=== PATIENT | female | born 1985 | race Caucasian/White ===

== ENCOUNTER 2017-12-28 01:06 | Emergency (ER) | payer OTHER ==
[2017-12-28 01:10] VITALS: BP 117/87
[2017-12-28] MEDS ORDERED: Pregabalin CAP(*) 50 MG PO ONE (01:19)
[2017-12-28] MEDS ORDERED: Ibuprofen TAB* 800 MG PO ONE (01:19)
[2017-12-28] MEDS ORDERED: oxyCODONE/Acetamin 5/325 MG* TAB PO ONE (02:07)
--- NOTE | 2017-12-28 03:06 | ED ---
Mert Peters Stephanie, scribed for Luis Melgar MD on 12/28/17 at 0124 . Upper Extremity Pain - HPI Summary HPI Summary: The pt is a 32 y/o F presenting to the ED with c/o R elbow pain that began at 19 :00 on 12/27/17. She denies sleeping incorrectly on that arm. She reports going on a 4 mile walk during the day. - History of Current Complaint Chief Complaint: EDExtremityUpper Stated Complaint: RT ELBOW INJURY Time Seen by Provider: 12/28/17 01:11 Hx Obtained From: Patient Hx Last Menstrual Period: 2 WEEKS AGO Mechanism Of Injury: Unknown Onset/Duration: Started Hours Ago Timing: Constant Severity Currently: Mild Pain Location: Elbow - R Aggravating Factor(s): Nothing Alleviating Factor(s): Nothing - Allergies/Home Medications Allergies/Adverse Reactions: Allergies Allergy/AdvReac Type Severity Reaction Status Date / Time levofloxacin [From Levaquin] Allergy Rash Verified 12/28/17 01:08 PMH/Surg Hx/FS Hx/Imm Hx Endocrine/Hematology History: Denies: Hx Anticoagulant Therapy, Hx Diabetes, Hx Thyroid Disease Cardiovascular History: Denies: Hx Hypertension, Hx Pacemaker/ICD Respiratory History: Reports: Hx Asthma - allergy induced Denies: Hx Chronic Obstructive Pulmonary Disease (COPD), Hx Lung Cancer GI History: Denies: Hx Gall Bladder Disease, Hx Gastrointestinal Bleed, Hx Ulcer, Hx Urosepsis History: Denies: Hx Kidney Stones, Hx Renal Disease Sensory History: Denies: Hx Hearing Aid Neurological History: Denies: Hx Dementia, Hx Migraine, Hx Seizures, Hx Transient Ischemic Attacks (TIA) Psychiatric History: Reports: Hx Anxiety Denies: Hx Depression, Hx Panic Disorder, Hx Schizophrenia, Hx Bipolar Disorder - Surgical History Surgery Procedure, Year, and Place: bilateral inferior turbinate reduction Infectious Disease History: No Infectious Disease History: Denies: Hx Hepatitis, Hx Human Immunodeficiency Virus (HIV), Traveled Outside the [place] in Last 30 Days - Family History Known Family History: Negative: Renal Disease - Social History Occupation: Employed Full-time Lives: With Family Alcohol Use: None Hx Substance Use: No Substance Use Type: Reports: None Hx Tobacco Use: No Smoking Status (MU): Never Smoked Tobacco Have You Smoked in the Last Year: No Review of Systems Negative: Fever Positive: Other - R elbow pain Negative: Slurred Speech All Other Systems Reviewed And Are Negative: Yes Physical Exam - Summary Physical Exam Summary: VITAL SIGNS: Reviewed. GENERAL: Patient is a well-developed and nourished FEMALE who is lying comfortable in the stretcher. Patient is not in any acute respiratory distress. HEAD AND FACE: No signs of trauma. No ecchymosis, hematomas or skull depressions. No sinus tenderness. EYES: PERRLA, EOMI x 2, No injected conjunctiva, no nystagmus. EARS: Hearing grossly intact. Ear canals and tympanic membranes are within normal limits. MOUTH: Oropharynx within normal limits. NECK: Supple, trachea is midline, no adenopathy, no JVD, no carotid bruit, no c- spine tenderness, neck with full ROM. CHEST: Symmetric, no tenderness at palpation LUNGS: Clear to auscultation bilaterally. No wheezing or crackles. CVS: Regular rate and rhythm, S1 and S2 present, no murmurs or gallops appreciated. ABDOMEN: Soft, non-tender. No signs of distention. No rebound no guarding, and no masses palpated. Bowel sounds are normal. EXTREMITIES: FROM in all major joints, no edema, no cyanosis or clubbing. Tenderness over medial lateral side of elbow. Neurovascularly intact distally. No swelling. NEURO: Alert and oriented x 3. No acute neurological deficits. Speech is normal and follows commands. SKIN: Dry and warm Triage Information Reviewed: Yes Vital Signs On Initial Exam: Initial Vitals Temp Pulse Resp BP Pulse Ox 97.8 F 90 20 117/87 98 12/28/17 01:07 12/28/17 01:07 12/28/17 01:07 12/28/17 01:07 12/28/17 01:07 Vital Signs Reviewed: Yes Diagnostics - Vital Signs Vital Signs Temp Pulse Resp BP Pulse Ox 12/28/17 01:07 97.8 F 90 20 117/87 98 - Laboratory Lab Statement: Any lab studies that have been ordered have been reviewed, and results considered in the medical decision making process. Re-Evaluation - Re-Evaluation First Eval Re-Evaluation Time: 02:47 Change: Improved - The pt states her pain has improved. Course/Dx - Course Course Of Treatment: ED physician encouraged the pt to follow up with ortho in the morning. The pt is in a sling. Dx: R elbow pain, possible neuropathy. - Diagnoses Provider Diagnoses: Right elbow pain Discharge - Sign-Out/Discharge Documenting (check all that apply): Discharge/Admit/Transfer - Discharge - Discharge Plan Condition: Stable Disposition: HOME Prescriptions: oxyCODONE/Acetamin 5/325 MG* [Percocet 5/325 TAB*] 1 tab PO Q6H PRN #14 tab MDD 4 PRN Reason: Pain Patient Education Materials: Elbow Sprain (ED), Arthralgia (ED) Referrals: Jennifer Samano MD [Medical Doctor] - Additional Instructions: Return to the ED for new or worsening symptoms. The documentation as recorded by the Mert waddell Stephanie accurately reflects the service I personally performed and the decisions made by , Luis Melgar MD.
--- NOTE | 2017-12-28 07:51 | RAD ---
INDICATION: Atraumatic right elbow pain COMPARISON: None TECHNIQUE: AP, lateral, and oblique views were obtained. FINDINGS: There is no convincing evidence of acute fracture. The elbow articulates normally. There is displacement of anterior posterior fat pads consistent with a joint effusion. IMPRESSION: JOINT EFFUSION. NO DEFINITIVE FRACTURE. SUGGEST FOLLOW-UP INDICATED.
== END 2017-12-28 03:12 | disposition home or self-care (01) ==
LOC: ED 01:06
DX: M25.521 Pain in right elbow (principal)
CPT/HCPCS: 99283; A9270-GY

== ENCOUNTER 2018-01-24 18:39 | Emergency (ER) | payer OTHER ==
[2018-01-24 19:05] VITALS: BP 123/84
[2018-01-24] MEDS ORDERED: Al Hydrox/Mg Hydrox/Simet LIQ* 30 ML UDC PO ONE (19:16)
[2018-01-24] MEDS ORDERED: Lidocaine 2% VISCOUS* 15 ML UDC PO ONE (19:17)
--- NOTE | 2018-01-24 20:09 | UC ---
Luther Peters Elizabeth, scribed for Luis Medeiros MD on 01/24/18 at 1915 . Cardiac HPI - HPI Summary HPI Summary: This patient is a 32 year old F presenting to [facility] with a chief complaint of intermittent upper sternal chest pain since this morning. The patient notes that the pain feels like acid reflux. The patient rates the pain 8/10 in severity. Symptoms aggravated by lying down. Symptoms alleviated by nothing. Patient reports vomiting stomach acid. Patient denies any hx of cardiac problems. The patient takes Prilosec PRN and Zantac. The patient has be previously diagnosed with a hiatal hernia. - History of Current Complaint Chief Complaint: UCGeneralIllness Stated Complaint: ACID REFLUX Time Seen by Provider: 01/24/18 19:08 Hx Obtained From: Patient Hx Last Menstrual Period: 01/20/18 Onset/Duration: Sudden Onset, Lasting Hours, Still Present Timing: Intermittent Episodes Lasting: Initial Severity: Moderate Current Severity: Moderate Pain Intensity: 8 Chest Pain Location: Upper Sternal Character: Burning Aggravating Factor(s): Position - lying down Alleviating Factor(s): Nothing Associated Signs & Symptoms: Positive: Chest Pain - upper sternal, Nausea/ Vomiting - Allergy/Home Medications Allergies/Adverse Reactions: Allergies Allergy/AdvReac Type Severity Reaction Status Date / Time levofloxacin [From Levaquin] Allergy Rash Verified 01/10/18 12:33 PMH/Surg Hx/FS Hx/Imm Hx Respiratory History: Asthma - allergy-induced GI/ History: Gastroesophageal Reflux Other GI/ History: hiatal hernia Other History Of: Negative For: HIV, Hepatitis B, Hepatitis C, Anticoagulant Therapy - Surgical History Surgical History: Yes Surgery Procedure, Year, and Place: bilateral inferior turbinate reduction - Family History Known Family History: Negative: Cardiac Disease - Social History Alcohol Use: None Substance Use Type: None Smoking Status (MU): Never Smoked Tobacco Review of Systems Constitutional: Negative - negative fever Respiratory: Negative - negative cough Cardiovascular: Chest Pain - upper stenal chest pain Gastrointestinal: Vomiting All Other Systems Reviewed And Are Negative: Yes Physical Exam - Summary Physical Exam Summary: General: well-appearing, no pain distress Skin: warm, color reflects adequate perfusion, dry Head: normal Eyes: EOMI, TREMAINE ENT: normal Neck: supple, nontender Respiratory: CTA, breath sounds present Cardiovascular: RRR Abdomen: soft, mild epigastric tenderness Bowel: present Musculoskeletal: normal, strength/ROM intact Neurological: sensory/motor intact, A&O x3 Psychological: affect/mood appropriate Triage Information Reviewed: Yes Vital Signs: Initial Vital Signs Temp 98.9 F 01/24/18 19:00 Pulse 87 01/24/18 19:00 Resp 16 01/24/18 19:00 BP 123/84 01/24/18 19:00 Pulse Ox 98 01/24/18 19:00 Vital Signs Reviewed: Yes - Assessment/Plan Course Of Treatment: DISCUSSED CARDIAC EVAL TO INCLUDE AN EKG HERE IN CLINIC. THE PATIENT REPORTS THIS IS THE SAME PAIN HER HIATAL HERNIA PAIN AND IS NOT CONCERNED ABOUT A CARDIAC CAUSE AND DECLINES AN EKG AT THIS TIME. F/U PMD; RECHECK SOONER IF WORSE. - Clinical Impression Provider Diagnoses: GERD. HIATAL HERNIA Discharge - Sign-Out/Discharge Documenting (check all that apply): Discharge/Admit/Transfer - Discharge Plan Condition: Stable Disposition: HOME Discharge Disposition Comment: discharge home Prescriptions: Sucralfate TAB* [Carafate*] 1 gm PO QID #60 tab Patient Education Materials: Hiatal Hernia (ED), Gastroesophageal Reflux Disease (ED) Referrals: Pedro Burden MD [Primary Care Provider] - Additional Instructions: FOLLOW UP WITH YOUR PRIMARY CARE DOCTOR AND [facility]. TAKE A TOTAL OF 40MG A DAY OF OMEPRAZOLE. GET RECHECKED FOR ANY WORSENING OF YOUR CONDITION OR QUESTIONS OR CONCERNS. - Billing Disposition and Condition Condition: STABLE Disposition: Home The documentation as recorded by the Luther waddell Elizabeth accurately reflects the service I personally performed and the decisions made by me, Luis Medeiros MD.
== END 2018-01-24 19:35 | disposition home or self-care (01) ==
LOC: UCEAST 18:39
DX: K21.9 Gastro-esophageal reflux disease without esophagitis (principal); K44.9 Diaphragmatic hernia without obstruction or gangrene; R07.89 Other chest pain; Z88.1 Allergy status to other antibiotic agents
CPT/HCPCS: 99212; A9270-GY; G0463

== ENCOUNTER 2018-04-21 08:54 | Emergency (ER) | payer OTHER ==
[2018-04-21 09:12] VITALS: BP 136/79
--- NOTE | 2018-04-21 09:51 | UC ---
Ear Complaint HPI - HPI Summary HPI Summary: 32-year-old woman comes in with complaint of right ear and jaw pain. Started about a week ago with her right ear canal itching. She been swimming in the ocean and this started. The pain is gradually spread into her right jaw. No fevers or chills no runny nose. No change in hearing. Pain is worse with palpation and with movement of the jaw. She is having dental orthodontics down so she wonders if this is part of the issue. She still has her was teeth which are impacted. - History of Current Complaint Chief Complaint: UCEar Stated Complaint: EAR PAIN Time Seen by Provider: 04/21/18 09:30 Hx Last Menstrual Period: 04/17/18 Pain Intensity: 3 - Allergies/Home Medications Allergies/Adverse Reactions: Allergies Allergy/AdvReac Type Severity Reaction Status Date / Time levofloxacin [From Levaquin] Allergy Rash Verified 04/21/18 09:12 Home Medications: Home Medications ALPRAZolam TAB* [Xanax TAB*] 0.25 mg PO TID PRN 04/21/18 [History Confirmed 11/03] Cetirizine* [ZyrTEC 10 MG TAB*] 10 mg PO DAILY 04/21/18 [History Confirmed 04/21] Fluticasone NASAL SPRAY 50MCG* [Flonase NASAL SPRAY 50MCG*] 2 spray BOTH NARES DAILY 04/21/18 [History Confirmed 04/21/18] Norgestimate-Eth Estradiol(NF) [Ortho Tri-Cyclen (NF)] 1 tab PO DAILY 04/21/18 [ History Confirmed 04/21/18] Sucralfate TAB* [Carafate*] 1 gm PO QID PRN 04/21/18 [History Confirmed 04/21/18 ] Topiramate TAB(*) [Topamax 100 mg tab] 100 mg PO BID 04/21/18 [History Confirmed 04/21/18] raNITIdine HCl [Zantac 150 Maximum Streng] 150 mg PO DAILY 04/21/18 [History Confirmed 04/21/18] PMH/Surg Hx/FS Hx/Imm Hx Other History Of: Negative For: HIV, Hepatitis B, Hepatitis C, Anticoagulant Therapy - Surgical History Surgical History: Yes Surgery Procedure, Year, and Place: bilateral inferior turbinate reduction - Family History Known Family History: Positive: None Negative: Cardiac Disease - Social History Alcohol Use: Rare Substance Use Type: None Smoking Status (MU): Never Smoked Tobacco Review of Systems Constitutional: Negative Skin: Negative Eyes: Negative ENT: Other - SEE HPI Respiratory: Negative Cardiovascular: Negative Gastrointestinal: Negative Motor: Negative Neurovascular: Negative Musculoskeletal: Negative Neurological: Negative Psychological: Negative Is Patient Immunocompromised?: No All Other Systems Reviewed And Are Negative: Yes Physical Exam Triage Information Reviewed: Yes Appearance: Well-Appearing, No Pain Distress, Well-Nourished Vital Signs: Initial Vital Signs Temp 97.9 F 04/21/18 09:07 Pulse 76 04/21/18 09:07 Resp 16 04/21/18 09:07 BP 136/79 04/21/18 09:07 Pulse Ox 98 04/21/18 09:07 Vital Signs Reviewed: Yes Eye Exam: Normal Eyes: Positive: Conjunctiva Clear ENT: Positive: Other - There is minimal tenderness to palpation when I push on the right tragus. There is also tenderness with palpation of the right TMJ. There is also minimal tenderness of the gingiva behind the the lower molar. The parotid gland and submandibular glands are nontender to palpation. Both TMs are normal. The left ear and left jaw examinations are normal. Neck exam: Normal Neck: Positive: Supple Respiratory Exam: Normal Respiratory: Positive: Lungs clear, Normal breath sounds, No respiratory distress Cardiovascular Exam: Normal Cardiovascular: Positive: RRR Musculoskeletal Exam: Normal Musculoskeletal: Positive: Strength Intact, ROM Intact, No Edema Neurological Exam: Normal Neurological: Positive: Alert Psychological Exam: Normal Psychological: Positive: Age Appropriate Behavior Skin Exam: Normal Ear Complaint Course/Dx - Course Course Of Treatment: We discussed the different possibilities of otitis externa impacted wisdom teeth dental infection TMJ. At this time will treat with antibiotic eardrops and also antibiotics by mouth and ibuprofen. If the patient 's not improved appropriate follow-up would be ENT and/or dentistry. - Differential Dx/Diagnosis Provider Diagnoses: RIGHT EAR AND JAW PAIN Discharge - Sign-Out/Discharge Documenting (check all that apply): Patient Departure All imaging exams completed and their final reports reviewed: No Studies - Discharge Plan Condition: Stable Disposition: HOME Patient Education Materials: Earache (ED) Referrals: Pedro Burden MD [Primary Care Provider] - Additional Instructions: FOLLOW UP WITH YOUR ENT AND/OR DENTIST IF NOT COMPLETELY IMPROVED. GET RECHECKED FOR ANY WORSENING OF YOUR CONDITION OR QUESTIONS OR CONCERNS. - Billing Disposition and Condition Condition: STABLE Disposition: Home
== END 2018-04-21 09:56 | disposition home or self-care (01) ==
LOC: UCEAST 08:54
DX: H92.01 Otalgia, right ear (principal); R68.84 Jaw pain; K06.8 Other specified disorders of gingiva and edentulous alveolar ridge; Z88.1 Allergy status to other antibiotic agents
CPT/HCPCS: 99212; G0463